=== PATIENT | female | born 1965 | race Caucasian/White ===

== ENCOUNTER 2024-10-11 10:00 | Emergency (ER) | payer OTHER, SELFPAY ==
[2024-10-11 10:07] VITALS: BP 174/79; PULSE 77; RESP 14; TEMP 36.6; O2SAT 99; BMI 36.6
--- NOTE | 2024-10-11 11:18 | ED_ITS ---
HPI - Extremity Problem <Mandi Lakhani PA-C - Last Filed: 10/11/24 12:57> General Chief complaint: Extremity Problem,Nontraumatic Stated complaint: cellulitis R leg Time Seen by Provider: 10/11/24 11:17 Source: patient Mode of arrival: Ambulatory History of Present Illness HPI Narrative: Ms. Camarena is a pleasant 59-year-old female past medical history of cellulitis 10 years ago who presents to the emergency department for right lower leg redness and swelling x1 day. Patient states she believes she has cellulitis. Reports that 10 years ago she had cellulitis of her entire right leg and hip and was admitted to the hospital. States that she has had persistent swelling of the right leg since then for the last 10 years but noticed yesterday the right lower leg became slightly more swollen and red. Denies any direct trauma but states that she does have chronic peeling of her heels. States she feels slightly nauseous but denies fevers, chills, vomiting, abdominal pain, chest pain, shortness of breath. Denies history of blood clots or blood thinner use. Denies taking any daily prescription medications. Related Data Previous Rx's Medication Instructions Recorded cephalexin 500 mg capsule 500 mg PO QID 7 days #28 caps 10/11/24 Allergies Allergy/AdvReac Type Severity Reaction Status Date / Time aspirin Allergy Verified 10/11/24 10:07 Review of Systems <Mandi Lakhani PA-C - Last Filed: 10/11/24 12:57> Review of Systems ROS Unobtainable: All systems reviewed & are unremarkable except as noted in HPI and below Patient History <Mandi Lakhani PA-C - Last Filed: 10/11/24 12:57> Social History Smoking Status: Unknown if ever smoked Smoking Status: Unknown if ever smoked alcohol intake frequency: 0-2 drinks per day Substance Use Type: does not use Exam <Mandi Lakhani PA-C - Last Filed: 10/11/24 12:57> Narrative Exam Narrative: GENERAL: 59 year old patient appears stated age. Obese patient, in no acute distress. HEAD: Atraumatic. Normocephalic. EYES: Extraocular motions intact. No scleral icterus. No injection or drainage. ENT: Nose without bleeding, purulent drainage. Throat without erythema, tonsillar hypertrophy or exudate. Airway patent. NECK: Trachea midline. Cervical ROM intact. CARDIOVASCULAR: Regular rate and rhythm. RESPIRATORY: ?Nonlabored respirations. ?Speaking in clear, full sentences. EXTREMITIES: bilateral lower extremity non-pitting edema, R>L. RLE with circumferential erythema up to mid-alfaro. Increased wamrth. No calf tenderness BL> Strong equal DP pulses palpated BL. Dry skin of BL heels/feet. BACK: Nontender without deformity or crepitance. NEURO: AOx3. ?Clear speech. ?Moves all 4 extremities appropriately. Initial Vital Signs Initial Vital Signs: Vital Signs Temperature 97.8 F 10/11/24 10:07 Pulse Rate 77 10/11/24 10:07 Respiratory Rate 14 10/11/24 10:07 Blood Pressure 174/79 H 10/11/24 10:07 Pulse Oximetry 99 10/11/24 10:07 Oxygen Delivery Method Room Air 10/11/24 10:07 <Frandy Vasquez MD - Last Filed: 10/11/24 19:33> Initial Vital Signs Initial Vital Signs: Vital Signs Temperature 97.8 F 10/11/24 10:07 Pulse Rate 77 10/11/24 10:07 Respiratory Rate 14 10/11/24 10:07 Blood Pressure 174/79 H 10/11/24 10:07 Pulse Oximetry 99 10/11/24 10:07 Oxygen Delivery Method Room Air 10/11/24 10:07 Course <Mandi Lakhani PA-C - Last Filed: 10/11/24 12:57> Orders Ordered: ED Orders 10/11/24 11:24 periph venous low extrem rt Stat Discontinued Medications Cephalexin HCl (Cephalexin 250 Mg Capsule) 500 mg PO NOW ONE Stop: 10/11/24 11:27 Last Admin: 10/11/24 11:32 Dose: 500 mg Documented By: BS Vital Signs Vital signs: Vital Signs - 8 hr 10/11/24 12:58 Pulse Rate 74 Respiratory Rate 16 Blood Pressure 147/70 H Pulse Oximetry 99 Oxygen Delivery Method Room Air <Frandy Vasquez MD - Last Filed: 10/11/24 19:33> Orders Ordered: ED Orders 10/11/24 11:24 periph venous low extrem rt Stat Discontinued Medications Cephalexin HCl (Cephalexin 250 Mg Capsule) 500 mg PO NOW ONE Stop: 10/11/24 11:27 Last Admin: 10/11/24 11:32 Dose: 500 mg Documented By: EL Vital Signs Vital signs: Vital Signs - 8 hr 10/11/24 12:58 Pulse Rate 74 Respiratory Rate 16 Blood Pressure 147/70 H Pulse Oximetry 99 Oxygen Delivery Method Room Air MDM - Extremity (Nontraumatic) <Mandi Lakhani PA-C - Last Filed: 10/11/24 12:57> MDM Narrative Medical decision making narrative: 59-year-old female with a past medical history of cellulitis presents to the emergency department for 1 day of right lower extremity redness and swelling. Differential diagnosis includes but is not limited to cellulitis, abscess, DVT, erysipelas, lymphedema, etc.. On exam patient is in no acute distress, nontoxic appearing, afebrile and not tachycardic. She is erythema and swelling of the right lower extremity clinically consistent with cellulitis. Patient does admit to a history of pr olonged swelling of the right leg compared to the left. She has strong peripheral pulses. After shared decision-making with the patient, we will obtain ultrasound venous of the right lower extremity to rule out underlying DVT. We will treat empirically with Keflex. We will kel area of cellulitis with a skin marker. Offered to obtain labs however patient declines IV and given her stable vital signs, I am agreeable. Informed patient of BP of 174/79 and recommended keeping a BP log at home to bring with her to her primary care doctor's appointment. Ultrasound negative for DVT. Border of cellulitis marked with skin marker. Patient given 1st dose of antibiotic in the ED. she was prescribed Keflex 4 times a day x7 days and advised to follow up promptly with PCP for further evaluation. We discussed very strict ER return precautions. Patient verbalized understanding of all information, she is accompanied by her friend Pilar. Patient is stable for discharge. Discharge Plan Departure Patient Disposition: Home Clinical Impression: Cellulitis Qualifiers: Site of cellulitis: extremity Site of cellulitis of extremity: lower extremity Laterality: right Qualified Code(s): L03.115 - Cellulitis of right lower limb Instructions: DI for Cellulitis -- Adult Activity Restrictions/Additional Instructions: Dear Ms. Camarena, Your diagnosis today is cellulitis of the right lower leg, which is a skin and subcutaneous tissue infection. Please complete the full course of oral antibiotics. It may help if you take the antibiotics with food, as sometimes they can cause stomach upset. It is very important to keep the feet and legs clean and dry. You may use a bar antibacterial soap such as dial or Hibiclens wash to wash the feet and legs in the shower, then pat dry. Compression socks can be used to help with lower leg swelling in addition to elevating the legs. If the redness increases up your leg or you have streaks of redness up your leg, you develop vomiting or can not keep down your antibiotics, or any other new or worsening symptoms, return to the ER immediately. Please rest as much as possible, and avoid standing for prolonged periods of time. Sit and elevate your legs frequently. Please follow up with a primary care doctor within the next 2-3 days for ER follow-up. (If you do not have a PCP you can call [phone]. ?to schedule an appointment with an [facility] Primary Care Provider) IF YOU DEVELOP ANY NEW OR WORSENING SYMPTOMS, RETURN TO THE ER! Please read the attached instructions, they highlight more specific treatments and interventions for you at home. Thank you for letting me participate in your care, Mandi Lakhani PA-C Prescriptions: New cephalexin 500 mg capsule 500 mg PO QID 7 Days Qty: 28 0RF Stand Alone Forms: Patient Portal/API/Survey ED Sign-out <Frandy Vasquez MD - Last Filed: 10/11/24 19:33> Cosign ED Attending Cosdaljitature Attestation: I was immediately available in the department for consultation. This documentation has been reviewed and I agree with assessment and plan. Supervised by Frandy Vasquez MD
--- NOTE | 2024-10-11 11:24 | DI.US.S_ITS ---
PROCEDURE: US PERIPH VENOUS LOW EXTREM RT INDICATIONS: right lower leg redness and swelling TECHNIQUE: Real-time imaging, as well as color and pulse Doppler interrogation, were performed of the lower extremity deep veins from the inguinal ligament to the popliteal fossa, with documentation of the visualized calf veins. COMPARISON: None. FINDINGS: The common femoral, femoral and popliteal veins are normally compressible, and free of intraluminal thrombus. The calf veins are not well seen secondary to edema. Color and pulse Doppler demonstrate normal phasic intraluminal flow. There is normal augmentation response to distal compression maneuver. IMPRESSION: No findings of lower extremity deep venous thrombosis. Dictated by: Osbaldo Fragoso M.D. on 10/11/2024 at 12:32 Approved by: Osbaldo Fragoso M.D. on 10/11/2024 at 12:37
[2024-10-11] MEDS: cephALEXin 250 MG CAPSULE 500 MG PO (11:32)
[2024-10-11 12:58] VITALS: BP 147/70; PULSE 74; RESP 16; O2SAT 99
== END 2024-10-11 12:59 | disposition home or self-care (01) ==
PROVIDERS: Emergency Provider Physician Assistant
DX: L03.115 Cellulitis of right lower limb (principal)
CPT/HCPCS: 93971; 99283